=== PATIENT | female | born 1960 | race Caucasian/White ===

== ENCOUNTER 2023-12-06 16:31 | Emergency (ER) | payer MEDICARE, BC ==
[~2023-12-06] VITALS: Ht 165.1 cm; Wt 80.0 kg
[2023-12-06 16:34] VITALS: TEMP 98
[2023-12-06] MEDS: TETanus/Pertussis (Acell)/Diphther VAC/PF (Tdap-Adult) 0.5ml syringe IMVAC ONE (18:04)
[2023-12-06 18:16] VITALS: BP 218/110; PULSE 72; RESP 18; O2SAT 97
== END 2023-12-06 18:28 | disposition home or self-care (01) ==
LOC: ER 16:32
DX: S51.012A Laceration without foreign body of left elbow, initial encounter (principal); J44.9 Chronic obstructive pulmonary disease, unspecified; F32.A Depression, unspecified; Z72.89 Other problems related to lifestyle; W18.39XA Other fall on same level, initial encounter; Y93.89 Activity, other specified; Y92.89 Other specified places as the place of occurrence of the external cause; Y99.8 Other external cause status
CPT/HCPCS: 73130; 90715; 99283; A4565; A6258; A6402; A6446; G0008; 90471; A6449